=== PATIENT | female | born 1985 | race Caucasian/White ===

== ENCOUNTER 2016-08-07 05:14 | Emergency (ER) | payer MEDICAID ==
[~2016-08-07] VITALS: Ht 165.1 cm; Wt 98.0 kg
[2016-08-07 05:15] VITALS: Ht 165.1 cm; Wt 98.0 kg
[2016-08-07] MEDS ORDERED: LIDOCAINE/MYLANTA 40 ML BTL PO STA (05:28)
[2016-08-07 05:55] LABS: ADD SCAN DIFF NO
[2016-08-07 06:08] LABS: BASOPHIL # 0.1 10^3/ul (0.0-0.1); BASOPHILS % 0.7 % (0.0-2.0); EOSINOPHILS # 0.2 10^3/ul (0.0-0.5); EOSINOPHILS % 2.4 % (0.0-7.0); HEMOGLOBIN 12.4 g/dl (12.0-16.0); LYMPHOCYTES # 3.1 10^3/ul (0.8-2.9); MEAN CORPUSCULAR HEMOGLOBIN 29.6 pg (29.0-33.0); MEAN CORPUSCULAR HGB CONC 33.5 g/dl (32.0-37.0); MEAN CORPUSCULAR VOLUME 88.3 fl (82.0-101.0); MEAN PLATELET VOLUME 9.5 fl (7.4-10.4); MONOCYTE # 0.7 10^3/ul (0.3-0.9); MONOCYTES % 7.8 % (0.0-11.0); NEUTROPHIL # 5.2 10^3/ul (1.6-7.5); NEUTROPHILS % 55.5 % (39.0-77.0); PLATELET COUNT 279 10^3/UL (140-415); RED BLOOD COUNT 4.19 10^6/ul (4.20-5.40); RED CELL DISTRIBUTION WIDTH 12.9 % (11.5-14.5); WHITE BLOOD COUNT 9.5 10^3/ul (4.8-10.8)
--- NOTE | 2016-08-07 06:24 | ERD ---
ER Documentation Chief Complaint Date/Time DATE: 08/07/16 TIME: 06:18 Chief Complaint Chest pain x2 days. Sore on the chest part and Tight on the shoulder and ar HPI Patient is a 31-year-old female who presents with 2-3 days of gradual onset, constant, dull and aching left upper chest, shoulder, and posterior neck pain. Patient denies trauma, denies heavy lifting. Patient denies cough, fever, back pain. Patient reports sometimes feeling slight shortness of breath. Patient does report significant stress related to recent diagnosis of cholelithiasis, and recent move to the area from the [facility]. Patient reports that pain is exacerbated by certain movements of the left arm. She reports occasional tingling in her thumb and index finger on the left. ROS All systems reviewed and are negative except as per history of present illness. Medications Home Meds Active Scripts Albuterol Sulfate* (Ventolin HFA*) 18 Gm Hfa.aer.ad, 2 PUFF INHALATION Q4H, #1 INHALER Prov:JAE NAVARRO MD 08/07/16 Salmeterol Xinaf-Fluticasone* (Advair HFA*) 45/212 Aerosol Inhaler, 2 INH IH BID , #1 INHALER Prov:JAE NAVARRO MD 08/07/16 Ibuprofen* (Motrin*) 600 Mg Tab, 600 MG PO Q8, #30 TAB Prov:JAE NAVARRO MD 08/07/16 Cyclobenzaprine Hcl* (Cyclobenzaprine Hcl*) 10 Mg Tablet, 10 MG PO TID Y for PAIN, #21 TAB Prov:JAE NAVARRO MD 08/07/16 Allergies Allergies: Coded Allergies: No Known Allergy (Unverified , 08/07/16) PMhx/Soc Past medical history: Asthma, cholelithiasis Past surgical history: None Social history denies tobacco, alcohol or illicit drugs Last menstrual period July 24 Medical and Surgical Hx: pt denies Surgical Hx Hx Respiratory Disorders: Yes (ASTHMA) Hx Alcohol Use: Yes (socially) Hx Substance Use: No Hx Tobacco Use: No Smoking Status: Never smoker FmHx Family History: No coronary disease, No diabetes Physical Exam Vitals Vital Signs Date Time Temp Pulse Resp B/P Pulse Ox O2 Delivery O2 Flow Rate FiO2 08/07/16 06:30 57 18 145/90 99 Room Air 08/07/16 05:40 Nasal Cannula 3 5/14/17 05:15 97.8 75 20 143/80 98 Physical Exam Const: Alert, no acute distress Head: Atraumatic Eyes: Normal Conjunctiva, no pallor, no icterus ENT: Normal External Ears, Nose and Mouth. Mucous membranes moist Neck: Full range of motion..~ No meningismus. Left paraspinal cervical tenderness with palpable muscle spasm. No midline tenderness Resp: Clear to auscultation bilaterally, no wheezes, no rales Cardio: Regular rate and rhythm, no murmurs, exquisite left upper chest wall tenderness and left shoulder tenderness with palpable muscle spasm Abd: Soft, non tender, non distended. Normal bowel sounds Skin: No petechiae or rashes Back: No midline or flank tenderness Ext: No cyanosis, or edema Neur: Awake and alert, cranial nerves II through XII intact, strength and sensation full throughout bilateral upper and lower extremities. Psych: Normal Mood and Affect Result Diagram: 08/07/16 0540 08/07/16 0540 Results 24 hrs Laboratory Tests Test 08/07/16 05:40 White Blood Count 9.510^3/ul Red Blood Count 4.1910^6/ul Hemoglobin 12.4g/dl Hematocrit 37.0% Mean Corpuscular Volume 88.3fl Mean Corpuscular Hemoglobin 29.6pg Mean Corpuscular Hemoglobin Concent 33.5g/dl Red Cell Distribution Width 12.9% Platelet Count 30320^3/UL Mean Platelet Volume 9.5fl Neutrophils % 55.5% Lymphocytes % 33.0% Monocytes % 7.8% Eosinophils % 2.4% Basophils % 0.7% Nucleated Red Blood Cells % 0.0/100WBC Neutrophils # 5.210^3/ul Lymphocytes # 3.110^3/ul Monocytes # 0.710^3/ul Eosinophils # 0.210^3/ul Basophils # 0.110^3/ul Nucleated Red Blood Cells # 0.010^3/ul Prothrombin Time 12.9Sec Prothrombin Time Ratio 1.0 INR International Normalized Ratio 0.97 Activated Partial Thromboplast Time 30.3Sec Sodium Level 138mmol/L Potassium Level 3.9mmol/L Chloride Level 103mmol/L Carbon Dioxide Level 26mmol/L Anion Gap 13 Blood Urea Nitrogen 11mg/dl Creatinine 0.62mg/dl Glucose Level 107mg/dl Calcium Level 9.5mg/dl Troponin I < 0.012ng/ml Current Medications Medications (Trade) Dose Ordered Sig/Chad Route PRN Reason Start Time Stop Time Status Last Admin Dose Admin Miscellaneous Medication (Gi Cocktail (2)) 40 ml ONCE STAT PO 08/07/16 05:28 08/07/16 05:30 DC 08/07/16 05:39 Cyclobenzaprine HCl (Flexeril) 10 mg ONCE ONCE PO 08/07/16 06:30 08/07/16 06:31 DC 08/07/16 06:25 Ibuprofen (Motrin) 600 mg ONCE ONCE PO 08/07/16 06:30 08/07/16 06:31 DC 08/07/16 06:25 Procedures/MDM EKG read by me: Time 519, rate 68 Rhythm: Normal sinus [place]: Normal Intervals: Normal ST-T waves: no ischemic changes Ectopy: No Q-waves: No Impression: No evidence of ischemia or arrhythmia MDM: Patient is a 31-year-old female who presents with chest wall pain that is easily reproducible and consistent with muscle spasm. It is associated with muscle spasm in the lateral cervical region with mild radicular symptoms and shoulder pain. There are no features that are concerning for coronary ischemia , PE. EKG and chest x-ray, labs are unremarkable. The patient's symptoms are improved after receiving Flexeril and Motrin. She will be discharged with prescriptions for these medications, as well as refills for her albuterol and Advair until the patient can find a PMD for follow-up. Departure Diagnosis: Primary Impression: Muscle spasm Additional Impression: Radiculopathy Spinal region: cervical Qualified Code: M54.12 - Cervical radiculopathy Condition: JAE Reddy MD August 07, 2016 06:24
[2016-08-07] MEDS ORDERED: IBUPROFEN 600 MG TAB PO ONE (06:30)
[2016-08-07] MEDS ORDERED: CYCLOBENZAPRINE 10 MG TAB PO ONE (06:30)
[2016-08-07 06:32] LABS: INR 0.97; PROTIME 12.9 Sec (12.2-14.2)
[2016-08-07 06:33] LABS: PARTIAL THROMBOPLASTIN TIME 30.3 Sec (25.0-35.0)
[2016-08-07 06:38] LABS: ANION GAP 13 (8-16); BLOOD UREA NITROGEN 11 mg/dl (7-20); CALCIUM 9.5 mg/dl (8.4-10.2); CARBON DIOXIDE 26 mmol/L (21-31); CHLORIDE 103 mmol/L (97-110); CREATININE 0.62 mg/dl (0.44-1.00); GLUCOSE 107 mg/dl (70-220); POTASSIUM 3.9 mmol/L (3.5-5.1); SODIUM 138 mmol/L (135-144)
[2016-08-07 06:51] LABS: TROPONIN-I < 0.012 ng/ml (0.00-0.12)
--- NOTE | 2016-08-07 07:39 | RADRPT ---
PROCEDURE: CHEST - 1 VIEW CLINICAL INDICATION: 31-year-old female with chest pain. TECHNIQUE: A single frontal AP portable view of the chest was performed. The images were reviewed on a PACS workstation. COMPARISON: None. FINDINGS: The cardiomediastinal silhouette has a normal appearance. There is a shallow inspiration. There is n o evidence for an infiltrate. There is no evidence for congestive heart failure. There is no eviden ce for pneumothorax. The osseous structures are intact. IMPRESSION: No evidence for active cardiopulmonary disease. .Cesario Ross MD, MD Date Time Electronically viewed and signed by .Cesario Ross MD, on 08/07/2016 07:39 .M/
[2016-08-07] MEDS ORDERED: CYCL-319 PO (07:46)
[2016-08-07] MEDS ORDERED: IBUP-1542 PO (07:46)
[2016-08-07] MEDS ORDERED: FLUT12HF IH (07:48)
[2016-08-07] MEDS ORDERED: ALBU18HF INHALATION (07:49)
[2016-08-07 07:54] VITALS: BP 142/78; PULSE 62; RESP 18; TEMP 98.1
== END 2016-08-07 07:56 | disposition home or self-care (01) ==
LOC: E/R 05:14
DX: M62.838 Other muscle spasm (principal); M54.12 Radiculopathy, cervical region; J45.909 Unspecified asthma, uncomplicated
CPT/HCPCS: 71010; 80048; 84484; 85025; 85610; 85730; 93005; Z7610; 36415